=== PATIENT | female | born 1935 | race Caucasian/White ===

== ENCOUNTER 2016-12-25 13:05 | Day surgery (SDC) | payer OTHER ==
[~2016-12-25] VITALS: Ht 160 cm; Wt 65.8 kg
[~2016-12-25 13:05] MED LIST: ACETAMINOPHEN PO; ADULT LOW DOSE81 M1 PO; ALEVE220 M2 PO; ASPIR 8181 M1 PO; ASPIR-LOW81 MG PO; Advil,Nuprin,Motrin PO; B COMPLETE1 EACH PO; CALCIUM + VITA1 EACH PO; CALCIUM 500 +1 EACH PO; CALCIUM 500 MG1 EACH PO; CALCIUM/VIT D PO; CATAPRES0.3 MG PO; CELEBREX200 MG PO; CELEXA40 MG PO; CITALOPRAM HBR20 M1 PO; COUMADIN,JANTOV10 MG PO; Calcium + Vitamin D PO; Coumadin dosing per PO; DAILY VALUE1 EACH PO; DELTASONE5 MG PO; DURAGESIC1 EAC1; DURAGESIC50 MCG TD; Deltasone PO; Duragesic TD; EFFEXOR XR75 MG PO; FENTANYL1 EAC1 TD; FOLIC ACID1 MG PO; FOLVITE1 MG PO; FORTEO20 MICROGR SC; Feosol PO; Folic Acid PO; HYDROXYZINE HCL25 MG PO; LEVOTHROID88 MCG PO; LEVOTHYROXINE88 MCG PO; LIBRIUM25 MG PO; LOPRESSOR100 M1 PO; LOPRESSOR100 MG PO; Levothroid,Synthroid PO; Lopressor PO; METOPROLOL SUC100 MG PO; METOPROLOL TAR100 MG PO; MIRALAX, GLYCO255 GM PO; MIRALAX17 GM PO; MIRALAX255 GM PO; MYRBETRIQ50 MG PO; NAPROSYN500 MG PO; NEXIUM40 MG PO; NITROSTAT0.4 MG SL; NORCO 5/3251 TABLET PO; NORVASC2.5 MG PO; NORVASC5 MG PO; OMEPRAZOLE40 M1 PO; OXYCODONE HCL10 MG PO; OXYCODONE HCL15 MG PO; OXYCODONE PO; OXYCONTIN10 MG; OXYCONTIN15 MG PO; OXYCONTIN20 MG PO; PERCOCET 10-321 EACH PO; PERCOCET 10/1 TABLET PO; PREDNISOLONE AC15 ML RIGHT EYE; PREDNISONE1 MG PO; PREDNISONE10 MG PO; PRINIVIL10 MG PO; PRISTIQ100 MG PO; RANITIDINE HCL150 MG PO; RESTASIS 01 DROP/0.4 BOTH EYES; RITUXAN IV; RITUXAN10 MG/ML IV; SYNTHROID88 MCG PO; THIAMINE,VITAM100 MG PO; TRANSPORT CHAI1 EACH MC; TRILEPTAL300 MG PO; VENLAFAXINE HC150 M1 PO; VENLAFAXINE HCL75 M3 PO; VENLAFAXINE225 MG PO; VESICARE5 MG PO; VITAMIN D250000 UNIT PO; Vicodin,Norco 5/325 PO; ZANTAC150 MG PO; Zestoretic,Prinzide PO; celeXA PO; predniSONE PO
== END 2016-12-25 14:55 | disposition home or self-care (01) ==
LOC: PAIN 13:05 → SDC 14:00 → PAIN 14:00
DX: M47.26 Other spondylosis with radiculopathy, lumbar region (principal); F41.9 Anxiety disorder, unspecified; G89.29 Other chronic pain; Z98.1 Arthrodesis status; M19.90 Unspecified osteoarthritis, unspecified site; I10 Essential (primary) hypertension; F32.9 Major depressive disorder, single episode, unspecified; M54.2 Cervicalgia; E03.9 Hypothyroidism, unspecified; Z96.659 Presence of unspecified artificial knee joint; F10.21 Alcohol dependence, in remission
CPT/HCPCS: J1030; J2250; J3010; S0020

== ENCOUNTER 2017-01-01 13:04 | Day surgery (SDC) | payer OTHER ==
[~2017-01-01] VITALS: Ht 160 cm; Wt 65.8 kg
== END 2017-01-01 14:46 | disposition home or self-care (01) ==
LOC: PAIN 13:04 → SDC 14:00 → PAIN 14:00
DX: M47.26 Other spondylosis with radiculopathy, lumbar region (principal); M54.5 Low back pain; G89.29 Other chronic pain; I10 Essential (primary) hypertension; K21.9 Gastro-esophageal reflux disease without esophagitis; E03.9 Hypothyroidism, unspecified; M54.2 Cervicalgia; F41.8 Other specified anxiety disorders; M06.9 Rheumatoid arthritis, unspecified; M53.3 Sacrococcygeal disorders, not elsewhere classified; Z79.891 Long term (current) use of opiate analgesic; Z98.1 Arthrodesis status
CPT/HCPCS: J1030; J3010; S0020

== ENCOUNTER 2017-04-02 12:34 | Day surgery (SDC) | payer OTHER ==
[~2017-04-02] VITALS: Ht 160 cm; Wt 65.8 kg
[~2017-04-02 12:34] MED LIST changes: +MAGNESIUM OXID400 MG PO; +MYRBETRIQ25 MG PO; +OXYCONTIN10 MG PO; -OXYCONTIN15 MG PO; -VENLAFAXINE225 MG PO; +VITAMIN B COMP1 EACH PO
== END 2017-04-02 14:38 | disposition home or self-care (01) ==
LOC: PAIN 12:34 → SDC 13:15 → PAIN 14:38
DX: M47.26 Other spondylosis with radiculopathy, lumbar region (principal); M47.16 Other spondylosis with myelopathy, lumbar region; M43.16 Spondylolisthesis, lumbar region; Z98.1 Arthrodesis status; I10 Essential (primary) hypertension; F32.9 Major depressive disorder, single episode, unspecified; K21.9 Gastro-esophageal reflux disease without esophagitis; M50.322 Other cervical disc degeneration at C5-C6 level; E03.9 Hypothyroidism, unspecified; M06.9 Rheumatoid arthritis, unspecified; Z86.73 Personal history of transient ischemic attack (TIA), and cerebral infarction without residual deficits; F10.21 Alcohol dependence, in remission; Z79.82 Long term (current) use of aspirin
CPT/HCPCS: J1030; J2250; J3010; S0020

== ENCOUNTER 2017-04-09 08:43 | Day surgery (SDC) | payer OTHER ==
[~2017-04-09] VITALS: Ht 160 cm; Wt 65.8 kg
== END 2017-04-09 10:35 | disposition home or self-care (01) ==
LOC: PAIN 08:43 → SDC 09:30 → PAIN 09:30
DX: M47.26 Other spondylosis with radiculopathy, lumbar region (principal); M47.16 Other spondylosis with myelopathy, lumbar region; M51.06 Intervertebral disc disorders with myelopathy, lumbar region; M43.10 Spondylolisthesis, site unspecified; M06.9 Rheumatoid arthritis, unspecified; M53.3 Sacrococcygeal disorders, not elsewhere classified; F41.8 Other specified anxiety disorders; I10 Essential (primary) hypertension; K21.9 Gastro-esophageal reflux disease without esophagitis; Z86.711 Personal history of pulmonary embolism; Z86.73 Personal history of transient ischemic attack (TIA), and cerebral infarction without residual deficits; Z79.891 Long term (current) use of opiate analgesic; Z79.82 Long term (current) use of aspirin; K59.09 Other constipation; Z98.1 Arthrodesis status
CPT/HCPCS: J1030; J2250; J3010; S0020

== ENCOUNTER 2018-01-12 08:51 | Inpatient (IN) | payer OTHER ==
[~2018-01-12] VITALS: Ht 160 cm; Wt 70.4 kg
[2018-01-12 09:10] LABS: BASOPHIL (%) 0.4 % (0-1); EOSINOPHIL (%) 1.1 % (0-5); EOSINOPHIL COUNT 0.1 K/uL (0-0.3); HEMOGLOBIN 11.4 G/DL (11.9-15.5); IMMATURE GRANULOCYTE (%) 1.3 % (0.0-0.7); LYMPHOCYTE COUNT 1.4 K/uL (1.0-2.8); MCH 33.3 PG (29.0-34.0); MCHC 33.5 G/DL (30.0-36.0); MCV 99.4 FL (83-99); MONOCYTE (%) 5.5 % (3-12); MONOCYTE COUNT 0.4 K/uL (0-0.8); NEUTROPHIL (%) 73.7 % (45-76); NEUTROPHIL COUNT 5.8 K/uL (1.8-6.4); PLATELET COUNT 215 K/uL (156-360); RBC DIS.WIDTH-SD 43.5 % (39-53); RED BLOOD COUNT 3.42 M/uL (3.80-5.20); WHITE BLOOD COUNT 7.9 K/uL (4.1-10.2)
[2018-01-12 09:33] LABS: AMYLASE 66 IU/L (1-118); CHLORIDE 103 mEq/L (99-109); POTASSIUM 4.5 mEq/L (3.7-5.4); SODIUM 137 mEq/L (136-147)
[2018-01-12 09:34] LABS: GLUCOSE 101 mg/dL (70-99)
[2018-01-12 09:37] LABS: SERUM ETHYL ALCOHOL < 10 mg/dL
[2018-01-12 09:38] LABS: CREATININE 1.5 mg/dL (0.6-1.3); GFR ESTIMATE (CALCULATED) 35 mL/min/
[2018-01-12 09:39] LABS: UREA NITROGEN (BUN) 15 mg/dL (9-23)
[2018-01-12 09:41] LABS: LIPASE 30 U/L (1.0-51.0)
[2018-01-12 11:03] LABS: APPEARANCE CLEAR ((CLEAR)); BILIRUBIN NEGATIVE; BLOOD NEGATIVE; COLOR COLORLESS ((YELLOW)); GLUCOSE (STRIP) NEGATIVE; KETONES NEGATIVE; LEUKOCYTES NEGATIVE; NITRITE NEGATIVE; PROTEIN (STRIP) NEGATIVE; SPECIFIC GRAVITY 1.006 (1.000-1.030); UCUL ADDED? NO; UROBILINOGEN 0.2 MG/DL (0.2-1.0)
[2018-01-12 11:12] LABS: AMPHETAMINE NEGATIVE (500 ng/mL); BARBITURATES NEGATIVE (200 ng/mL); BENZODIAZEPINES NEGATIVE (150 ng/mL); BUPRENORPHINE NEGATIVE (10 ng/mL); COCAINE NEGATIVE (150 ng/mL); METHADONE NEGATIVE (200 ng/mL); METHAMPHETAMINE NEGATIVE (500 ng/mL); OPIATES (MORPHINE) NEGATIVE (100 ng/mL); OXYCODONE PRESUMPTIVE POSITIVE (100 ng/mL); PHENCYCLIDINE NEGATIVE (25 ng/mL); PROPOXYPHENE NEGATIVE (300 ng/mL); THC CANNABINOIDS NEGATIVE (50 ng/mL); TRICYCLIC ANTIDEPRESSANTS NEGATIVE (300 ng/mL)
[2018-01-12] MEDS ORDERED: B-COMPLEX WITH1 EAC3 PO (11:14)
[2018-01-12] MEDS ORDERED: OXYCODONE HCL10 MG PO (11:18)
[2018-01-12 13:57] VITALS: BP 143/73
[2018-01-12 16:48] VITALS: BP 143/65
[2018-01-12 19:16] VITALS: BP 141/79
[2018-01-12 22:45] VITALS: BP 148/70
[2018-01-13 03:07] VITALS: BP 161/77
[2018-01-13 08:22] VITALS: BP 162/83
[2018-01-13 11:52] VITALS: BP 153/79
[2018-01-13 19:00] VITALS: BP 185/89
[2018-01-13 22:45] VITALS: BP 187/86
[2018-01-14 03:30] VITALS: BP 148/77
[2018-01-14 09:00] VITALS: BP 169/83
[2018-01-14 12:00] VITALS: BP 158/83
[2018-01-14 17:00] VITALS: BP 157/86
[2018-01-15] VITALS (7 sets, daily range): BP systolic 138–155; BP diastolic 63–87
[2018-01-16 04:22] VITALS: BP 142/80
[2018-01-16 08:47] VITALS: BP 145/81
[2018-01-16 11:53] VITALS: BP 140/76
[2018-01-16 15:42] VITALS: BP 151/80
[2018-01-16 19:40] VITALS: BP 140/77
[2018-01-17 00:30] VITALS: BP 148/70
[2018-01-17 05:05] VITALS: BP 138/86
[2018-01-17 07:18] VITALS: BP 144/81
[2018-01-17 11:19] VITALS: BP 139/68
[2018-01-17] MEDS ORDERED: VENLAFAXINE HCL75 M3 PO (13:01)
[2018-01-17] MEDS ORDERED: OXYCODONE HCL10 MG PO (13:01)
== END 2018-01-17 14:09 | DRG 86 ==
LOC: EME 08:51 → 4EAST 12:09 → EDOF 12:09 → ENRESERV 12:31 → 4EAST 13:55 → ENRESERV 01-17 10:55 → 4EAST 01-17 14:09
PROVIDERS: Emergency Medicine; Surgery
DX: S06.6X0A Traumatic subarachnoid hemorrhage without loss of consciousness, initial encounter (principal); S20.219A Contusion of unspecified front wall of thorax, initial encounter; S22.069A Unspecified fracture of T7-T8 vertebra, initial encounter for closed fracture; S22.20XA Unspecified fracture of sternum, initial encounter for closed fracture; S22.029A Unspecified fracture of second thoracic vertebra, initial encounter for closed fracture; S22.089A Unspecified fracture of T11-T12 vertebra, initial encounter for closed fracture; M48.54XA Collapsed vertebra, not elsewhere classified, thoracic region, initial encounter for fracture; S12.9XXA Fracture of neck, unspecified, initial encounter; W10.9XXA Fall (on) (from) unspecified stairs and steps, initial encounter; F32.9 Major depressive disorder, single episode, unspecified; I10 Essential (primary) hypertension; M06.9 Rheumatoid arthritis, unspecified; Y93.9 Activity, unspecified; Y92.9 Unspecified place or not applicable; K21.9 Gastro-esophageal reflux disease without esophagitis; Z86.711 Personal history of pulmonary embolism; I25.2 Old myocardial infarction; Z90.710 Acquired absence of both cervix and uterus; Z96.653 Presence of artificial knee joint, bilateral; Z79.891 Long term (current) use of opiate analgesic; Z79.899 Other long term (current) drug therapy; G89.29 Other chronic pain; Z98.1 Arthrodesis status; E11.9 Type 2 diabetes mellitus without complications; Z85.038 Personal history of other malignant neoplasm of large intestine; B37.81 Candidal esophagitis
CPT/HCPCS: 70450; 71260; 72125; 72129; 72132; 72141; 72146; 74177; 80048; 81003; 82150; 82948; 83690; 85025; 86850; 86900; 86901; 93005; 94799; 97530 GP; 99281; 99285; G0480; J1170; J1885; J2060; J3010; J7030

== ENCOUNTER 2018-02-09 13:11 | Inpatient (IN) | payer OTHER ==
[~2018-02-09] VITALS: Ht 160 cm; Wt 64.0 kg
[~2018-02-09 13:11] MED LIST changes: +B-COMPLEX WITH1 EAC3 PO
[2018-02-09 13:36] LABS: HEMATOCRIT 38.6 % (36.0-46.0); MCH 33.4 PG (29.0-34.0); MCHC 34.2 G/DL (30.0-36.0); MCV 97.7 FL (83-99); PLATELET COUNT 241 K/uL (156-360); RBC DIS.WIDTH-CV 13.1 % (11.8-14.6); WHITE BLOOD COUNT 10.5 K/uL (4.1-10.2)
[2018-02-09 13:39] LABS: HEMOGLOBIN 13.2 G/DL (11.9-15.5); RED BLOOD COUNT 3.95 M/uL (3.80-5.20)
[2018-02-09 13:59] LABS: TROP-I INTERPRETATION NEGATIVE; TROPONIN-I 0.06 ng/mL (0.0-0.30)
[2018-02-09 14:01] LABS: CHLORIDE 96 MEQ/L (99-109); POTASSIUM 4.7 MEQ/L (3.7-5.4); SODIUM 132 MEQ/L (136-147)
[2018-02-09 14:07] LABS: CREATININE 0.9 MG/DL (0.6-1.3); GFR ESTIMATE (CALCULATED) > 59 mL/min/; GLUCOSE 128 mg/dL (70-99); UREA NITROGEN (BUN) 8 mg/dL (9-23)
[2018-02-09 15:03] LABS: INTER. NORMALIZED RATIO 1.1
[2018-02-09] MEDS ORDERED: OXYCODONE HCL10 MG PO (17:09)
[2018-02-09] MEDS ORDERED: VENLAFAXINE HCL75 M3 PO (17:10)
[2018-02-09] MEDS ORDERED: OMEPRAZOLE40 M1 PO (17:11)
[2018-02-09] MEDS ORDERED: ALEVE220 MG PO (17:12)
[2018-02-09 17:59] VITALS: BP 182/85
[2018-02-09 19:40] VITALS: BP 140/73
[2018-02-09 22:50] LABS: TROP-I INTERPRETATION NEGATIVE; TROPONIN-I 0.07 ng/mL (0.0-0.30)
[2018-02-09 23:54] VITALS: BP 152/87
[2018-02-10 01:08] LABS: TROP-I INTERPRETATION NEGATIVE; TROPONIN-I 0.06 ng/mL (0.0-0.30)
[2018-02-10 04:28] VITALS: BP 158/87
[2018-02-10 06:11] LABS: HEMATOCRIT 35.6 % (36.0-46.0); HEMOGLOBIN 11.5 G/DL (11.9-15.5); MCH 32.4 PG (29.0-34.0); MCHC 32.3 G/DL (30.0-36.0); MCV 100.3 FL (83-99); PLATELET COUNT 212 K/uL (156-360); RBC DIS.WIDTH-CV 13.2 % (11.8-14.6); RBC DIS.WIDTH-SD 49.1 % (39-53); RED BLOOD COUNT 3.55 M/uL (3.80-5.20); WHITE BLOOD COUNT 8.5 K/uL (4.1-10.2)
[2018-02-10 06:32] LABS: CHLORIDE 100 MEQ/L (99-109); CREATININE 0.7 MG/DL (0.6-1.3); GFR ESTIMATE (CALCULATED) > 59 mL/min/; GLUCOSE 102 mg/dL (70-99); UREA NITROGEN (BUN) 8 mg/dL (9-23)
[2018-02-10 06:33] LABS: SODIUM 140 MEQ/L (136-147)
[2018-02-10 07:35] VITALS: BP 153/83
[2018-02-10] MEDS ORDERED: ELIQUIS5 M1 PO (08:44)
[2018-02-10 15:38] VITALS: BP 134/71
[2018-02-10 22:20] VITALS: BP 159/82
[2018-02-11 05:45] LABS: HEMOGLOBIN 10.9 G/DL (11.9-15.5); MCH 33.1 PG (29.0-34.0); MCV 100.3 FL (83-99); PLATELET COUNT 193 K/uL (156-360); RBC DIS.WIDTH-CV 12.9 % (11.8-14.6); RBC DIS.WIDTH-SD 47.2 % (39-53); RED BLOOD COUNT 3.29 M/uL (3.80-5.20); WHITE BLOOD COUNT 5.5 K/uL (4.1-10.2)
[2018-02-11 07:15] VITALS: BP 159/90
[2018-02-11] MEDS ORDERED: ELIQUIS5 MG PO (12:41)
[2018-02-11 15:09] VITALS: BP 118/65
== END 2018-02-11 16:17 | disposition home health service (06) | DRG 176 ==
LOC: EME 13:11 → EDOF 16:46 → 5SOUTH 16:46 → ENRESERV 16:48 → 5SOUTH 17:53
PROVIDERS: Emergency Medicine; Internal Medicine; Physician Assistant Medical
DX: I26.99 Other pulmonary embolism without acute cor pulmonale (principal); S26.91XA Contusion of heart, unspecified with or without hemopericardium, initial encounter; I27.20 Pulmonary hypertension, unspecified; I08.3 Combined rheumatic disorders of mitral, aortic and tricuspid valves; Z86.711 Personal history of pulmonary embolism; Z96.653 Presence of artificial knee joint, bilateral; E03.9 Hypothyroidism, unspecified; I10 Essential (primary) hypertension; S06.6X9D Traumatic subarachnoid hemorrhage with loss of consciousness of unspecified duration, subsequent encounter; W10.9XXD Fall (on) (from) unspecified stairs and steps, subsequent encounter; S22.20XD Unspecified fracture of sternum, subsequent encounter for fracture with routine healing; S22.009D Unspecified fracture of unspecified thoracic vertebra, subsequent encounter for fracture with routine healing; M06.9 Rheumatoid arthritis, unspecified; S12.9XXD Fracture of neck, unspecified, subsequent encounter; Z85.828 Personal history of other malignant neoplasm of skin; R09.02 Hypoxemia; K21.9 Gastro-esophageal reflux disease without esophagitis
CPT/HCPCS: 71045; 71275; 80048; 84484; 85027; 85610; 85730; 86850; 86900; 86901; 93005; 93306; 94799; 99281; 99285; J1885; J2405; J3010; J7030